=== PATIENT | female | born 1985 | race Two or more races ===

== ENCOUNTER 2024-11-17 12:13 | Emergency (ER) | payer OTHER, SELFPAY ==
[2024-11-17] VITALS (9 sets, daily range): BP systolic 108–125; BP diastolic 56–70; PULSE 64–87; RESP 14–16; TEMP 36.4–37; O2SAT 98–100; BMI 21.1
--- NOTE | 2024-11-17 13:42 | ED_ITS ---
HPI - General Adult General Date Seen: 11/17/24 Chief complaint: Weakness Stated complaint: low hemogloben Time Seen by Provider: 11/17/24 12:32 Source: patient Mode of arrival: ambulatory Limitations: no limitations History of Present Illness HPI narrative: Patient is a 39-year-old female presenting to the emergency department for anemia and weakness. She states for the past few months she she has been feeling fatigued and will get everts sedation on her chest wall walking. Went to [facility] this morning and was sent to the lab to get a blood draw. Was told she was anemic. Was sent to the emergency department. Also had a low hemoglobin he a year ago but she states she changed her phone number and they were never able to get a hold of her. Has been told she has had low hemoglobin prior to that also. Has never had a blood transfusion. Does have a history of gastric bypass surgery done 9 years ago in [place]. Is not on any iron supplements. Denies chest pain, headache, abdominal pain, shortness of breath, fevers, chills. Does states she feels lightheaded. No other concerns noted at this time. Has not noticed any melena or hematochezia. Related Data Home Medications ?Medication ?Instructions ?Recorded ?Confirmed No Known Home Medications 11/17/24 11/17/24 Allergies Allergy/AdvReac Type Severity Reaction Status Date / Time No Known Drug Allergies Allergy Verified 11/17/24 12:31 Review of Systems Status of ROS: Reports: 10 or more systems reviewed and unremarkable except as noted in History and below [facility] Social History Smoking Status: Never smoker Do you use any of these nicotine containing products: None Second hand tobacco smoke exposure: No How often do you have a drink containing alcohol: never AUDIT-C Alcohol total score: 0 Non-prescribed substance use: denies use Exam Narrative: Exam Narrative: Const: Well-nourished, Well-developed, in mild distress Eyes: PERRL, no conjunctival injection, and symmetrical lids HENT: Atraumatic external nose and ears. Moist mucous membranes. Neck: Symmetric, trachea midline, No thyromegaly. CVS: RRR, No murmurs or gallops. Peripheral pulses 2+ and equal in all extremities RESP: Unlabored respiratory effort. Clear to auscultation bilaterally. GI: Nontender/Nondistended, No rebound or guarding. MSK:Extremities w/o deformity, Normal Active ROM Skin: Warm, Dry. No rashes or lesions. Neuro: Normal Muscle tone, No focal neurological deficits. Psych: Awake, Alert, & Oriented x3. Appropriate mood and affect. Const: Vital Signs, click to edit/add: Vital Signs - 24 hr 11/17/24 12:28 11/17/24 14:03 11/17/24 14:20 Temperature 97.8 F 98.1 F 98.6 F Pulse Rate 74 71 Pulse Rate [Pulse Oximeter] 87 Respiratory Rate 16 14 14 Blood Pressure 112/66 112/66 Blood Pressure [Le ft Upper Arm] 125/56 L Pulse Oximetry 98 100 100 Oxygen Delivery Me thod Room Air Room Air Room Air 11/17/24 14:50 11/17/24 15:19 11/17/24 15:48 Temperature 97.7 F 98.6 F 98.3 F Pulse Rate 71 71 69 Pulse Rate [Pulse Oximeter] Respiratory Rate 16 16 16 Blood Pressure 115/62 109/69 113/70 Blood Pressure [Le ft Upper Arm] Pulse Oximetry 100 100 100 Oxygen Delivery Me thod Room Air Course Vital Signs Vital signs: Initial Vital Signs Temperature 97.8 F 11/17/24 12:28 Temperature Source Temporal Artery Scan 11/17/24 12:28 Pulse Rate 87 11/17/24 12:28 Respiratory Rate 16 11/17/24 12:28 Blood Pressure 125/56 L 11/17/24 12:28 Blood Pressure Mean 79 11/17/24 12:28 Blood Pressure Position Sitting 11/17/24 12:28 Pulse Oximetry 98 11/17/24 12:28 Oxygen Delivery Method Room Air 11/17/24 12:28 Vital Signs Temperature 97.8 F 11/17/24 12:28 Pulse Rate 87 11/17/24 12:28 Respiratory Rate 16 11/17/24 12:28 Blood Pressure 125/56 L 11/17/24 12:28 Pulse Oximetry 98 11/17/24 12:28 Oxygen Delivery Method Room Air 11/17/24 12:28 Temperature 97.6 F 11/17/24 17:04 Pulse Rate 70 11/17/24 17:04 Respiratory Rate 16 11/17/24 17:04 Blood Pressure 108/66 11/17/24 17:04 Pulse Oximetry 99 11/17/24 17:04 Oxygen Delivery Method Room Air 11/17/24 14:50 Medical Decision Making MDM Narrative Medical decision making narrative: Patient is a 39-year-old female presenting to the emergency department for anemia. Hemoglobin was 3.5 today. Will recheck this hemoglobin. She also has low iron, low % saturation and low ferritin with a normal TIBC. This is consistent with iron deficiency anemia. I do believe she may not be absorbing enough iron due to her previous gastric bypass surgery. Will also check a BMP and type and screen. She otherwise appears stable at this time. Recheck hemoglobin here and was 3.3. Will order 2 L of packed red blood cells. I was able speak to [facility] the provider there states they will schedule a hemoglobin recheck and will follow up with her this week. They will work on trying to see they can apply her for unsure insert that she can get primary care follow-up and possible iron infusions in the future. I do believe her anemia is due to poor iron absorption. Due to this I do not believe iron supplements wo uld be beneficial. No signs of bleeding at this time. I did speak to the patient and her family again they state [facility] has already called them and they have an appointment for this Sunday. Lab Data Labs: Lab Results 11/17/24 11/17/24 Range/Units 12:42 12:56 WBC Cancelled Corrected WBC Cancelled RBC Cancelled Hgb 3.3 L* (12.0-16.0) gm/dL Hct Cancelled MCV Cancelled MCH Cancelled MCHC Cancelled RDW Coeff of Manfred Cancelled Plt Count Cancelled Neut % (Auto) Cancelled Lymph % (Auto) Cancelled [place] % (Auto) Cancelled Eos % (Auto) Cancelled Baso % (Auto) Cancelled Neut # (Auto) Cancelled Lymph # (Auto) Cancelled [place] # (Auto) Cancelled Eos # (Auto) Cancelled Baso # (Auto) Cancelled Abs Immat Gran (auto) Cancelled Imm/Tot Granulo (auto) Cancelled Blood Type O Positive Antibody Screen NEGATIVE Crossmatch (AHG) See Detail Discharge Plan Discharge Clinical Impression: Iron deficiency anemia Qualifiers: Iron deficiency anemia type: unspecified iron deficiency Qualified Code(s): D50.9 - Iron deficiency anemia, unspecified Patient Disposition: Home, Self-Care Condition: Improved Instructions: Anemia (ED) Additional Instructions: I believe your low hemoglobin is due to not absorbing enough iron secondary to your gastric bypass surgery. I have spoken to [facility] and they will call you to schedule an iron recheck and to have a follow-up appointment. It is important that you get this done. Also be due noticed any bloody or black tarry stool you should be re-evaluated immediately. You may eventually need iron infusions. Prescriptions: No Action No Known Home Medications Follow Up/Referrals: Provider,Not a Local [Primary Care Provider] - Stand Alone Forms: Open Home Pro Info Instructions
[2024-11-17 13:55] LABS: Hemoglobin* 3.3 gm/dL (12.0-16.0)
== END 2024-11-17 17:17 | disposition home or self-care (01) ==
PROVIDERS: Emergency Provider Student in an Organized Health Care Education/Training Program
DX: D50.9 Iron deficiency anemia, unspecified (principal); R53.83 Other fatigue; Z98.84 Bariatric surgery status
CPT/HCPCS: 36415; 36430; 80048; 85018; 85025; 86850; 86900; 86901; 86922; 99284; 99285; P9016

== ENCOUNTER 2024-12-03 09:00 | Outpatient (RCR) | payer OTHER, SELFPAY ==
[2024-11-28 11:33] VITALS: BP 103/51; PULSE 70; RESP 16; TEMP 37.3; O2SAT 100
[2024-11-28] MEDS: ferumoxytoL 510 MG in 0.9 % SODIUM CHLORIDE 250 ml 250 ML 1068 MG IVPB (11:52)
[2024-11-28 12:35] VITALS: BP 104/54; PULSE 70; RESP 16; TEMP 36.8; O2SAT 100
[2024-11-28 13:08] VITALS: BP 105/57; PULSE 73; RESP 16; TEMP 36.7; O2SAT 100
[2024-12-03 08:38] VITALS: BP 112/68; PULSE 61; TEMP 36.4; O2SAT 100
[2024-12-03] MEDS: ferumoxytoL 510 MG in 0.9 % SODIUM CHLORIDE 250 ml 250 ML 800 MG IVPB (09:09)
[2024-12-03] MEDS: SODIUM CHLORIDE 0.9 % (FLUSH) 10 ML SYRINGE IVF (09:14)
[2024-12-03 09:35] VITALS: BP 120/72; PULSE 60; RESP 16; O2SAT 98
[2024-12-03 10:07] VITALS: BP 115/69; PULSE 63; RESP 16; O2SAT 98
== END 2025-05-27 23:59 | disposition home or self-care (01) ==
LOC: CCIC 09:00
PROVIDERS: PCP Family Medicine; Referring Provider Family Medicine; Visit Provider Clinical Nurse Specialist
DX: D50.9 Iron deficiency anemia, unspecified (principal)
CPT/HCPCS: 96365; T1013; J7050; Q0138